=== PATIENT | male | born 1975 | race Caucasian/White ===

== ENCOUNTER 2016-06-30 07:20 | Day surgery (SDC) | payer MEDICAID ==
[~2016-06-30] VITALS: Ht 167.6 cm; Wt 48.6 kg
[~2016-06-30 07:20] MED LIST: CARAFATE S1 GM/10 ML PO; MSIR10 MG/5 ML PO; NORCO 325 MG-51 TAB PO; OXYCODONE H5 MG/5 ML PO
[2016-06-30 08:10] VITALS: BP 125/88; BP 175/88; PULSE 104; TEMP 97.9
[2016-06-30] MEDS ORDERED: DIFLUCAN150 MG PO (08:20)
[2016-06-30] MEDS ORDERED: LIDOCAINE HC20 MG/M2 PO (08:21)
[2016-06-30] MEDS ORDERED: OXYCODONE H5 MG/5 ML PO ×2 (08:21→11:45)
[2016-06-30 09:36] LABS: CALCIUM 10.2 mg/dL (8.4-10.2); CREATININE, serum 0.91 mg/dL (0.66-1.25); POTASSIUM 4.5 mmol/L (3.4-5.0)
[2016-06-30 10:35] VITALS: BP 119/87; PULSE 84; TEMP 97.8
[2016-06-30 10:50] VITALS: BP 123/91; PULSE 80
[2016-06-30 11:05] VITALS: BP 126/88; PULSE 80
[2016-06-30 11:30] VITALS: BP 114/86; PULSE 93
[2016-06-30] MEDS ORDERED: FENTANYL 25 MCG TD (11:45)
[2016-06-30 12:30] VITALS: BP 115/87; PULSE 84
== END 2016-06-30 14:30 | disposition home or self-care (01) ==
LOC: SDCO 07:20
PROVIDERS: Surgery
DX: C09.9 Malignant neoplasm of tonsil, unspecified (principal); F17.210 Nicotine dependence, cigarettes, uncomplicated; J44.9 Chronic obstructive pulmonary disease, unspecified; J45.909 Unspecified asthma, uncomplicated
CPT/HCPCS: J0330; J1100; J1170; J2250; J2405; J2704; J3010; J7120

== ENCOUNTER 2017-02-17 23:53 | Observation (INO) | payer MEDICAID ==
[~2017-02-17] VITALS: Ht 170.2 cm; Wt 53.4 kg
[~2017-02-17 23:53] MED LIST changes: +DIFLUCAN150 MG PO; +FENTANYL 25 MCG TD; +LIDOCAINE HC20 MG/M2 PO
[2017-02-18] MEDS ORDERED: ALBUTEROL1.25 MG/3 IH (00:02)
[2017-02-18 02:11] VITALS: BP 115/87; PULSE 86; TEMP 98.1
[2017-02-18 04:23] VITALS: BP 127/87; PULSE 81; TEMP 98.1
[2017-02-18 08:21] VITALS: BP 137/90; PULSE 84; TEMP 98.1
== END 2017-02-18 16:05 | disposition home or self-care (01) ==
LOC: COL.ER 23:53 → EDBEDREQ 02-18 00:49 → SURG 02-18 00:49
DX: N48.1 Balanitis (principal); N34.2 Other urethritis
CPT/HCPCS: G0378; J2270

== ENCOUNTER 2018-06-28 08:30 | Outpatient (RCR) | payer MEDICAID ==
[~2018-06-28 08:30] MED LIST changes: +ALBUTEROL1.25 MG/3 IH
== END 2018-07-08 | disposition home or self-care (01) ==
LOC: WSST
DX: R13.12 Dysphagia, oropharyngeal phase (principal); C09.8 Malignant neoplasm of overlapping sites of tonsil

== ENCOUNTER → 2024-05-14 | Outpatient (CLI) | payer MEDICAID ==
[~2024-05-14] MED LIST changes: +AMOXICILLIN 8751 TAB PO; +PREDNISONE50 MG PO
== END ==
LOC: COL.RAD 09:51
DX: J38.02 Paralysis of vocal cords and larynx, bilateral (principal); R13.14 Dysphagia, pharyngoesophageal phase